=== PATIENT | male | born 1950 | race Caucasian/White ===

== ENCOUNTER 2017-10-03 07:58 | Day surgery (SDC) | payer MEDICARE, BC ==
[2017-10-03] MEDS ORDERED: PROPOFOL 10 MG/ML VIAL IV ONE (07:59)
[2017-10-03] MEDS ORDERED: LIDOCAINE 2% MDV (20MG/ML) 20ML VIAL IV ONE (07:59)
--- NOTE | 2017-10-03 14:40 | Operative Note ---
DATE OF SURGERY: 10/03/2017 OPERATION: COLONOSCOPY to the cecum with cold snare polypectomy x3 and cold biopsy forceps polypectomy x1. INDICATION: Prior history of adenomatous polyps. Today patient returns at this time after 3 years for surveillance. ANESTHESIA: Intravenous sedation was administered by the department of anesthesiology and included Diprivan titrated to effect. PROCEDURE: Following informed consent from this alert individual including a discussion of the risks and benefits of the procedure and an opportunity for the patient to ask questions, the patient was in the left lateral decubitus position. A digital rectal examination was performed. Small external hemorrhoids were noted. No masses were palpable. Following this, the Olympus [id number] video colonoscope was inserted into the rectum without resistance. The rectal mucosa had a normal appearance with normal folds and distensibility. The colonoscope was advanced up through the bowel to the level of the small bowel anastomosis in the right colon. The patient had a previous colon resection for large adenomatous polyp. There were a few small diverticula noted in the distal descending colon and the sigmoid region. Also noted were a total of 4 polyps; 2 in the transverse colon measuring 5 and 6 mm in size, respectively, and these were removed with cold snare polypectomy. There was a 5 mm polyp noted in the descending colon revealed with cold snare polypectomy and upon withdrawal of the colonoscope in retroflexion in the rectum, a 3 mm polyp distal rectal polyp removed with cold biopsy forceps. The anastomotic site was healthy in appearance. No other mucosal changes were appreciated throughout. The colon preparation was good. Slow withdrawal through the anus revealed small external hemorrhoids. The patient tolerated the procedure well and was returned to the recovery area in stable condition. IMPRESSION: 1. Two transverse colon polyps measuring 5 and 6 mm in size removed with cold snare polypectomy. 2. A 5 mm descending colon polyp removed with cold snare polypectomy. 3. A 3 mm distal rectal polyp removed with biopsy forceps. 4. Mild diverticulosis. 5. Small external hemorrhoids. RECOMMENDATIONS: Further recommendations will be forthcoming pending results of pathology obtained today. The patient will be following up with MARYAN Bach. Because of his underlying cirrhosis, I did recommend he have a repeat ultrasound, alpha fetoprotein, and arrange for upper endoscopy, perhaps the same day as his ultrasound exam. As always, thank you for allowing me to participate in the care of your patient. CC: MARYAN Bach
== END 2017-10-03 10:40 | disposition home or self-care (01) ==
LOC: HOP 07:58
PROVIDERS: ATTEND Internal Medicine Gastroenterology
DX: Z09 Encounter for follow-up examination after completed treatment for conditions other than malignant neoplasm (principal); D12.4 Benign neoplasm of descending colon; D12.3 Benign neoplasm of transverse colon; K62.1 Rectal polyp; Z87.19 Personal history of other diseases of the digestive system

== ENCOUNTER 2017-10-10 12:11 | Day surgery (SDC) | payer MEDICARE, BC ==
[2017-10-10] MEDS ORDERED: LIDOCAINE 2% MDV (20MG/ML) 20ML VIAL IV ONE (12:12)
[2017-10-10] MEDS ORDERED: PROPOFOL 10 MG/ML VIAL IV ONE (12:12)
--- NOTE | 2017-10-11 12:31 | Operative Note ---
DATE OF SURGERY: 10/10/2017 OPERATION: ESOPHAGOGASTRODUODENOSCOPY with multiple biopsies. INDICATION: Screening for esophageal varices. Patient with history of steatohepatitis with cirrhosis. This was his first endoscopy. ANESTHESIA: Intravenous sedation was administered by the department of anesthesiology and included Diprivan titrated to effect. PROCEDURE: Following informed consent from this alert individual, including a discussion of the risks and benefits of the procedure and an opportunity for the patient to ask questions, the patient was in the left lateral decubitus position. The Olympus [id number] video endoscope was inserted into the esophagus without resistance. The proximal esophagus had a normal appearance with normal folds and distensibility. The mid and distal esophagus likewise was free from changes. The squamocolumnar junction was smooth and well defined and approximated the diaphragmatic hiatus. The stomach was entered. The gastric pars media and antrum were evaluated circumferentially and found to be normal. The pylorus was patent. The duodenal bulb, sweep and descending duodenum were examined in a serial fashion and found to be normal as well. The endoscope was then drawn back into the body of the stomach where retroflexion accomplished following air insufflation failed to demonstrated 2 large proximal gastric polyps again seen best in retroflexion. The largest measured perhaps 1 to 1.2 cm in size and the smaller was 1 cm in size. Each had a mucoid cap and was somewhat friable when biopsied. The endoscope was then straightened and withdrawn after biopsies were completed. Again the esophagus upon withdrawal appeared to be normal. The instrument was removed. The patient tolerated the procedure well and was returned to the recovery area in stable condition. IMPRESSION: Two 1 to 1.2 cm proximal gastric polypoid structures with mucoid caps. Biopsies were taken. RECOMMENDATION: Further recommendations will be forthcoming pending results of biopsy obtained today. The patient might return for a repeat endoscopy with possible cautery snare polypectomy again pending results. Followup will also be with Jovana Mclaughlin MD. As always, thank you for allowing me to participate in the care of your patient. CC: Jovana Mclaughlin MD [facility]
== END 2017-10-10 15:24 | disposition home or self-care (01) ==
LOC: HOP 12:11
PROVIDERS: ATTEND Internal Medicine Gastroenterology
DX: K75.81 Nonalcoholic steatohepatitis (NASH) (principal); K31.7 Polyp of stomach and duodenum; I10 Essential (primary) hypertension; E11.9 Type 2 diabetes mellitus without complications; K74.60 Unspecified cirrhosis of liver
CPT/HCPCS: 76700